=== PATIENT | male | born 1995 ===

== ENCOUNTER 2017-03-05 21:01 | Emergency (ER) | payer SELFPAY ==
[~2017-03-05] VITALS: Ht 180.3 cm; Wt 63.5 kg
[2017-03-05 21:03] VITALS: BP 121/59; PULSE 73; RESP 16; TEMP 97.8; O2SAT 100
[2017-03-05] MEDS ORDERED: NRDRIP SQ (21:15)
[2017-03-05] MEDS ORDERED: NOVONP2 SQ (21:15)
== END 2017-03-05 22:05 | disposition left against medical advice (07) ==
LOC: NED 21:01
DX: K08.89 Other specified disorders of teeth and supporting structures (principal); Z53.21 Procedure and treatment not carried out due to patient leaving prior to being seen by health care provider
CPT/HCPCS: 99281